=== PATIENT | male | born 1950 | race Two or more races ===

== ENCOUNTER 2024-09-02 09:35 | Emergency (ER) | payer MEDICAID, SELFPAY ==
--- NOTE | 2024-09-02 09:45 | PC.NURSE ---
DR MILLER IN OLD TRIAGE TO SEE PT. PER DR MILLER PT IS NOT A STROKE ALERT
--- NOTE | 2024-09-02 09:58 | PD.EDEXREM ---
ED Extremity Problem RME/HPI General Chief complaint: Neuro Symptoms/Deficit Stated complaint: sent by pmd for CVA rule out Time Seen by Provider: 09/02/24 09:54 Arrival date/time: 09/02/24 09:35 RME / HPI RME / HPI Narrative: 73 year old male with history of CVA, hypertension, diabetes, and hyperlipidemia, and active tobacco smoker presents to the ED sent by PCP at [facility] for evaluation of left neck and left arm pain that began at ~ 5 PM yesterday. The pain is primarily located in the left upper arm, near the bicep, and radiates to the elbow and up the left side of the neck. He also reports some weakness in his left hand. States he took Tylenol for pain but did not provide much relief. He was able to sleep flat on his back without worsening of pain, and no specific positions exacerbate the pain. Today, he consulted with his PCP, who advised him to come to the ED to rule out a stroke. Patient denies changes in speech, vision, or sensation. He has no other associated symptoms or complaints. 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 He believes that the type of work and repetitive movements may be exacerbating his symptoms. Related Data Home Medications ?Medication ?Instructions ?Recorded ?Confirmed amlodipine 5 mg tablet (Norvasc) 5 mg PO QDAY #0 tabs 06/12/16 methimazole 10 mg tablet (Tapazole) 10 mg PO DAILY #0 tabs 06/12/16 Previous Rx's ?Medication ?Instructions ?Recorded Atorvastatin Calcium 20 mg PO DAILY #30 tabs 06/12/16 Nicotine PATCH * (NICODERM CQ 21 mg TOP QDAY #30 patches 06/12/16 PATCH 21 *) aspirin 81 mg chewable tablet 81 mg PO QDAY ##30 06/12/16 clopidogrel 75 mg tablet (Plavix) 75 mg PO QDAY #30 tabs 06/12/16 losartan 25 mg tablet (Cozaar) 25 mg PO DAILY #30 tabs 06/12/16 acetaminophen 650 mg 650 mg PO Q12H PRN pain #14 tabs 09/02/24 tablet,extended release (Tylenol Arthritis Pain) Allergies Allergy/AdvReac Type Severity Reaction Status Date / Time NKA* Allergy Uncoded 09/02/24 09:37 Review of Systems Review of Systems Systems Reviewed: All systems reviewed, normal except as documented Past Medical History Social History SMOKING STATUS: Current some day smoker ED Exam Narrative Physical exam: GENERAL APPEARANCE: AxOx4, no obvious distress, nontoxic appearing HEENT: NC, AT. MMM. EOMI, clear conjunctiva, oropharynx clear. NECK: Supple without lymphadenopathy. No stiffness or restricted ROM. HEART: Normal rate and regular rhythm, normal S1/S1, no m/r/g LUNGS: CTAB, moving air well. No crackles or wheezes are heard. ABDOMEN: Soft, nontender, nondistended with good bowel sounds heard. BACK: No midline C/T/L spine pain or deformity, No CVAT, no obvious deformity. EXTREMITIES: Without cyanosis, clubbing or edema. MUSCULOSKELETAL: Reproducible pain over the left neck trapezius area, no pain or tenderness on bicep of arm. FROM of all major joints, no chest tenderness NEUROLOGICAL: Grossly nonfocal. Alert and oriented, moving all 4 extremities. CN not formally tested but appear grossly intact. Skin: Warm and dry without any rash. Course Quality Measures none Orders Category Date Time Status Ketorolac Inj [Toradol Inj] Med 09/02/24 09:54 Discontinued 30 mg IM X1 ONE Vital Signs Vital signs: Vital Signs Temperature 97.7 F 09/02/24 10:04 Pulse Rate 48 L 09/02/24 10:04 Respiratory Rate 16 09/02/24 10:04 Blood Pressure 181/75 H 09/02/24 10:04 Pulse Oximetry (%) 98 09/02/24 10:04 Oxygen Delivery Method Room Air 09/02/24 10:04 Pulse ox is 98% on room air which is adequate. Extremity Problem MDM Narrative MDM Narrative:: Shannan Rm am scribing for and in the presence of Dr. Christopher. Patient data External records reviewed:: [facility] previous records (I reviewed H&P on 06/10/2016 ) Clinical information provided by:: patient Social determinants that could affect healthcare access:: other (specify) (active tobacco smoker ) Patient has the following chronic illnesses:: CVA, hypertension, diabetes, and hyperlipidemia, and active tobacco smoker How is presenting disease/condition affected by chronic disease/condition?: exacerbated by Evaluation data The following diagnostics were reviewed and interpreted by me:: other (specify) (No diagnostics ordered ) Lab and/or radiology exams considered but not ordered:: None Interpretation Summary: N/A Medications / Prescriptions Medications or Prescriptions considered but not ordered:: None Medication administrations:: Medication Administration History Discontinued Medications Ketorolac Tromethamine (Ketorolac Inj 60 Mg/2 Ml Vial) 30 mg IM X1 ONE Stop: 09/02/24 09:55 Last Admin: 09/02/24 10:05 Dose: 30 mg Documented By: OA See above Consultations Consultation(s) initiated? (list below): No Diagnosis Extremity Problem Differential Diagnosis: gout and other (Cervical radiculopathy, muscle strain ) Most likely diagnosis given after review of the tests above:: Cervical radiculopathy Cervical muscle strain Admission Indicated Admission indicated?: not indicated Admission Request Was there a request for admission?: No Disposition Plan Disposition Plan: Discharge Discharge Attestation Discharge Attestation: The patient and all family members were given an opportunity to ask questions and understood the discharge instructions. Discharge instructions specifically effects, indications for sooner follow up or return to the emergency department, and the expected course of current diagnosis. Patient condition: Stable Discharge Plan Plan Patient Disposition: HOME (Self Care) Prescriptions/Referrals Prescriptions/Med Rec: New acetaminophen [Tylenol Arthritis Pain] 650 mg tablet extended release 650 mg PO Q12H PRN (Reason: pain) Qty: 14 0RF No Action amlodipine [Norvasc] 5 MG tablet 5 mg PO QDAY Qty: 0 methimazole [Tapazole] 10 MG tablet 10 mg PO DAILY Qty: 0 Atorvastatin Calcium 10 MG tablet 20 mg PO DAILY Qty: 30 0RF clopidogrel [Plavix] 75 MG tablet 75 mg PO QDAY Qty: 30 0RF losartan [Cozaar] 25 MG tablet 25 mg PO DAILY Qty: 30 0RF aspirin 81 MG tablet,chewable 81 mg PO QDAY Qty: 30 0RF Nicotine PATCH * (NICODERM CQ PATCH 21 *) 21 MG/24 HR patch 21 mg TOP QDAY Qty: 30 0RF Problem List Clinical Impression: Cervical radiculopathy at C5, Cervical muscle strain Patient/Caregiver Discharge Instructions Education Materials: ED Neck Pain, ED Radiculopathy, Cervical Additional Instructions: Acuda a ramires m?dico de cabecera seg?n sea necesario. Puede regresar a urgencias antes si los s?ntomas empeoran o si nota alg?n problema nuevo o preocupante. Print Language: Macedonian Stand Alone Forms: Elida Award Info., Patient Portal Info Letter
[2024-09-02 10:04] VITALS: BP 181/75; PULSE 48; RESP 16; TEMP 36.5; O2SAT 98
[2024-09-02] MEDS: KETOROLAC INJ 60 MG/2 ML VIAL 30 MG IM (10:05)
== END 2024-09-02 10:28 | disposition home or self-care (01) ==
LOC: SERX 10:21
PROVIDERS: Emergency Provider Emergency Medicine
DX: M54.12 Radiculopathy, cervical region (principal); S16.1XXA Strain of muscle, fascia and tendon at neck level, initial encounter; X58.XXXA Exposure to other specified factors, initial encounter; Z86.73 Personal history of transient ischemic attack (TIA), and cerebral infarction without residual deficits; E11.9 Type 2 diabetes mellitus without complications; E78.5 Hyperlipidemia, unspecified; I10 Essential (primary) hypertension; F17.200 Nicotine dependence, unspecified, uncomplicated
CPT/HCPCS: 96372; 99283; J1885